=== PATIENT | female | born 1965 | race Caucasian/White ===

== ENCOUNTER 2024-01-29 06:49 | Day surgery (SDC) | payer MEDICARE, MEDICAID ==
[~2024-01-29 06:49] MED LIST: Sodium Chloride 0.9% 10 ML Syringe FLUSH PRN; Sodium Chloride 0.9% 10 ML Syringe FLUSH SCH
[2024-01-29] MEDS: Lactated Ringers 1,000 ML IV SCH (07:05)
[2024-01-29] MEDS ORDERED: Propofol 200 MG/20 ML SDV ONE (07:19)
[2024-01-29] MEDS ORDERED: HYDROmorphone 0.5 MG/0.5 ML Syringe IVPUSH PRN (07:36)
[2024-01-29] MEDS ORDERED: fentaNYL 100 MCG/2 ML SDV IVPUSH PRN (07:36)
[2024-01-29] MEDS ORDERED: Ondansetron 4 MG/2 ML SDV IVPUSH PRN (07:36)
[2024-01-29] MEDS ORDERED: fentaNYL 100 MCG/2 ML SDV ONE (07:42)
== END 2024-01-29 08:55 | disposition home or self-care (01) ==
LOC: JD.SDS 06:49
PROVIDERS: ATTEND Surgery
DX: K52.9 Noninfective gastroenteritis and colitis, unspecified (principal); I10 Essential (primary) hypertension; F32.A Depression, unspecified; Z79.899 Other long term (current) drug therapy; Z88.0 Allergy status to penicillin
CPT/HCPCS: 45380; 88305; J2704; J3010; J7120; 00811